=== PATIENT | female | born 1985 | race Caucasian/White ===

== ENCOUNTER → 2017-07-24 | Outpatient (CLI) | payer BC ==
--- NOTE | 2017-07-24 11:24 | KCIC ---
RENAL COMPLETE BILATERAL History: Urinary retention Comparison: None. Findings: Multiple sonographic images of the kidneys and urinary bladder are submitted. Right kidney measured 10.2 x 4.9 x 5.6 cm. Left kidney measured 11 x 4.6 x 5.5 cm. There is no hydronephrosis of either kidney. Renal echogenicity is considered within normal limits. Abdominal aortic caliber is within normal limits up to 2.1 cm proximally. There is segmental visualization of the inferior vena cava. Estimated prevoid urinary bladder volume was 78 cc, postvoid volume 0 cc. Impression: 1. Patient voided to completion. No abnormality is demonstrated of either kidney. Electronically signed by: Tomas Swain MD (07/24/2017 11:21 AM) [id number]
== END | disposition home or self-care (01) ==
LOC: KCIC US 10:04
PROVIDERS: ATTEND Family Medicine
DX: R33.9 Retention of urine, unspecified (principal)
CPT/HCPCS: 76770